=== PATIENT | male | born 1960 | race Caucasian/White ===

== ENCOUNTER 2020-12-04 12:25 | Outpatient (CLI) | payer BC | END 2020-12-04 12:26 | disposition home or self-care (01) | LOC: BICRAD 12:25 | PROVIDERS: ATTEND Chiropractor | DX: M47.22 Other spondylosis with radiculopathy, cervical region (principal); M79.10 Myalgia, unspecified site; M53.82 Other specified dorsopathies, cervical region | CPT/HCPCS: 72050 ==